=== PATIENT | female | born 1945 | race Caucasian/White ===

== ENCOUNTER → 2019-03-09 | Outpatient (CLI) | payer OTHER | END | disposition home or self-care (01) | LOC: LAB SHORT 11:04 → PLD 11:04 | DX: D48.5 Neoplasm of uncertain behavior of skin (principal) | CPT/HCPCS: 88305 ==

== ENCOUNTER → 2020-02-28 | Outpatient (CLI) | payer OTHER | LOC: PLD 11:15 → LAB SHORT 11:15 | DX: D48.5 Neoplasm of uncertain behavior of skin (principal) | CPT/HCPCS: 88305 ==

== ENCOUNTER 2020-11-18 08:16 | Day surgery (SDC) | payer OTHER ==
[~2020-11-18] VITALS: Ht 170.2 cm; Wt 55.6 kg
[~2020-11-18 08:16] MED LIST: ACET325; ALEN70; BALSALAZIDE DI750 M1 PO; CALCIUM 500 +1 EAC1; IBUP200
== END 2020-11-18 10:52 | disposition home or self-care (01) ==
LOC: ORSCSDS 08:16
PROVIDERS: Internal Medicine Gastroenterology
PROC: 0DBK8ZX Excision of Ascending Colon, Via Natural or Artificial Opening Endoscopic, Diagnostic (ICD-10-PCS; principal; 2020-11-18 09:45)
PROC: 0DBE8ZX Excision of Large Intestine, Via Natural or Artificial Opening Endoscopic, Diagnostic (ICD-10-PCS; principal; 2020-11-18 09:45)
DX: K51.90 Ulcerative colitis, unspecified, without complications (principal); Z86.010 Personal history of colon polyps; Z80.0 Family history of malignant neoplasm of digestive organs; D12.2 Benign neoplasm of ascending colon; K63.89 Other specified diseases of intestine; Z87.891 Personal history of nicotine dependence; Z79.899 Other long term (current) drug therapy
CPT/HCPCS: 88305; J2704; J7120

== ENCOUNTER → 2022-09-08 | Outpatient (CLI) | payer OTHER ==
[2022-09-08 14:09] LABS: Adenovirus F 40/41 Not Detected (NOT DETECT); Astrovirus Not Detected (NOT DETECT); Campylobacter Sp Not Detected (NOT DETECT); Cryptosporidium Not Detected (NOT DETECT); Cyclospora Cayetanensis Not Detected (NOT DETECT); E. Coli O157 Not Detected (NOT DETECT); Entamoeba Histolytica Not Detected (NOT DETECT); Enteroaggregative E. coli-EAEC Not Detected (NOT DETECT); Enteropathogenic E. coli-EPEC Not Detected (NOT DETECT); Enterotoxigenic E. coli-ETEC Not Detected (NOT DETECT); Giardia Lamblia Not Detected (NOT DETECT); Norovirus GI/GII Not Detected (NOT DETECT); Plesiomonas Shigelloides Not Detected (NOT DETECT); Rotavirus A Not Detected (NOT DETECT); Salmonella Sp Not Detected (NOT DETECT); Sapovirus Not Detected (NOT DETECT); Shiga Toxin-prod E. coli-STEC Not Detected (NOT DETECT); Shigella/Enteroin E. coli-EIEC Not Detected (NOT DETECT); Vibrio Cholerae Not Detected (NOT DETECT); Vibrio Sp Not Detected (NOT DETECT); Yersinia Enterocolitica Not Detected (NOT DETECT)
== END | disposition home or self-care (01) ==
LOC: LAB SHORT 10:15
PROVIDERS: Family Medicine
DX: R10.9 Unspecified abdominal pain (principal); R19.7 Diarrhea, unspecified; K51.30 Ulcerative (chronic) rectosigmoiditis without complications; K92.1 Melena
CPT/HCPCS: 87507

== ENCOUNTER 2025-02-27 10:02 | Day surgery (SDC) | payer OTHER ==
[~2025-02-27] VITALS: Ht 170.2 cm; Wt 56.8 kg
[~2025-02-27 10:02] MED LIST changes: +Balanced Salt Epinephrine Irrigation Solution 500 mL IR SCH; +Moxifloxacin HCL 0.5 MG/0.1 ML 0.4MLSYR LEFTEYE SCH; +Ondansetron 4 MG SoluTab MM PRN; +PHENYLEPHRINE\\TROPICAMIDE\\TETRACAINE OPHTHALMIC DILATING SOLN LEFTEYE PRN; +Povidone-Iodine 450 DROP/30 ML Solution LEFTEYE SCH; +Povidone-Iodine 450 DROP/30 ML Solution ONE; +Premarin0.3 MG PO; +Tetracaine HCl/Pf 0.5% Opth Soln 4 ml ONE; +VALA500; +VALA500 PO
--- NOTE | 2025-02-27 10:30 | NUR ---
02/27/25 1030 Anna Chavez CALL LIGHT WITHIN REACH. PT IS ON CONTINOUS PULSE OXIMETER. EYE DROPS IN LEFT EYE AT 1022
[2025-02-27] MEDS ORDERED: Tetracaine HCl 0.5% Opth Soln 15 ml LEFTEYE ONE (10:50)
--- NOTE | 2025-02-27 10:52 | NUR ---
02/27/25 1052 Rc Cosme N 155/75 99% 10L BLOW BY O2 52 20
[2025-02-27 11:09] VITALS: BP 143/74
--- NOTE | 2025-02-27 11:15 | NUR ---
02/27/25 1115 Cristina Finley CALLED AND INSTRUCTED TO PULL UP TO PATIENT COUNTER CLERK AREA
== END 2025-02-27 11:27 | disposition home or self-care (01) ==
LOC: ORSCSDS 10:02
PROVIDERS: Student in an Organized Health Care Education/Training Program
PROC: 08RK3JZ Replacement of Left Lens with Synthetic Substitute, Percutaneous Approach (ICD-10-PCS; principal; 2025-02-27 11:30)
DX: H25.12 Age-related nuclear cataract, left eye (principal); Z96.1 Presence of intraocular lens
CPT/HCPCS: A9270; V2632